=== PATIENT | male | born 1975 | race Caucasian/White ===

== ENCOUNTER 2021-04-07 16:11 | Outpatient (CLI) | payer BC, SELFPAY ==
[2021-04-07 17:55] LABS: SARS-CoV-2 RNA PCR Negative (Negative)
== END 2021-04-07 16:12 | disposition home or self-care (01) ==
PROVIDERS: PCP Internal Medicine; Visit Provider Internal Medicine
DX: Z20.822 Contact with and (suspected) exposure to COVID-19 (principal)
CPT/HCPCS: C9803; U0003; U0005